=== PATIENT | male | born 1985 | race African-American/Black ===

== ENCOUNTER 2019-08-03 21:44 | Emergency (ER) | payer OTHER, SELFPAY ==
[2019-08-03 21:45] VITALS: BP 132/77; PULSE 90; RESP 16; TEMP 36.7; O2SAT 99
--- NOTE | 2019-08-03 21:56 | ED.DENTAL ---
HPI - Dental/Oral General Chief complaint: Dental/Oral Stated complaint: tooth Time Seen by Provider: 08/03/19 21:49 Source: patient History of Present Illness HPI Narrative: Pt c/o left lower tooth pain, started 1 week ago. Denies facial swelling. Denies throat swellingo or dysphagia. Denies fever. Related Data Allergies Allergy/AdvReac Type Severity Reaction Status Date / Time clindamycin Allergy Unknown Itching Verified 08/03/19 21:55 Review of Systems Review of Systems: All systems reviewed & are unremarkable except as noted in HPI and below PMFSH Social History Social History Gender identity (if verbalized by the patient): Male Exam Const: General: no acute distress and alert Orientation/consciousness: patient oriented x3 HENMT: Teeth and gingiva: abnormal tooth and associated gingiva (dental decay with gingival swelling left lower molar) Course Vital Signs Vital signs: Vital Signs Temperature 36.7 C 08/03/19 21:45 Pulse Rate 90 08/03/19 21:45 Respiratory Rate 16 08/03/19 21:45 Blood Pressure 132/77 08/03/19 21:45 Pulse Oximetry 99 08/03/19 21:45 Temperature 36.7 C 08/03/19 21:45 Pulse Rate 90 08/03/19 21:45 Respiratory Rate 16 08/03/19 21:45 Blood Pressure 132/77 08/03/19 21:45 Pulse Oximetry 99 08/03/19 21:45 Discharge Plan Discharge Clinical Impression: Dental caries, Toothache Patient Disposition: Home, Self-Care Condition: Stable Instructions: Antibiotic Form, Toothache (ED) Additional Instructions: FOLLOW UP WITH A DENTIST SOON POSSIBLE Prescriptions: New amoxicillin 875 mg tablet 875 mg PO Q12H Qty: 14 RF: 0 No Action penicillin V potassium 500 mg tablet 500 mg PO QID 10 Days Qty: 40 RF: 0 ibuprofen 800 mg tablet 800 mg PO TID PRN (Reason: pain) Qty: 30 RF: 0 Follow-up/Referrals: UNKNOWN,DOCTOR [Primary Care Provider] - Stand Alone Forms: Work/School Release IP Time of Disposition: 22:03
[2019-08-03] MEDS: KETOROLAC (*BKC) 60 MG/2 ML VIAL IM (21:58)
== END 2019-08-03 22:08 | disposition home or self-care (01) ==
PROVIDERS: Emergency Provider Emergency Medicine
DX: K02.9 Dental caries, unspecified (principal)
CPT/HCPCS: 96372; 99283; J1885

== ENCOUNTER 2019-09-06 00:32 | Emergency (ER) | payer OTHER, SELFPAY ==
[2019-09-06 00:36] VITALS: BP 141/100; PULSE 68; RESP 18; TEMP 36.6; O2SAT 100
--- NOTE | 2019-09-06 00:53 | ED.DENTAL ---
HPI - Dental/Oral General Chief complaint: Dental/Oral Stated complaint: dental pain Time Seen by Provider: 09/06/19 00:42 Source: RN notes reviewed History of Present Illness HPI Narrative: Patient presents emergency department from home for dental pain. Patient states symptoms began approximately 1 week ago. The pain is located in the right lower molar tooth. Pain is worse with chewing on the tooth. States he has a history of a cavity in that tooth had a dental appointment scheduled but was canceled. States he has been taking Tylenol and Motrin at home for pain with last dose of Motrin 1 hour ago he denies any fevers or chills ear pain nasal pain swelling of the cheek difficulty swallowing or any other symptoms Related Data Allergies Allergy/AdvReac Type Severity Reaction Status Date / Time clindamycin Allergy Unknown Itching Verified 09/06/19 00:45 Review of Systems Review of Systems: Narrative: Gen.: Denies fevers or chills HEENT: See HPI Neuro: Denies headache ss Skin: Denies rash Endo: Denies DM PMFSH Past Medical History Medical History (Updated 09/06/19 @ 00:55 by Edmundo Arce DO) Patient denies significant medical history Social History Social History (Updated 09/06/19 @ 00:54 by Edmundo Arce DO) Gender identity (if verbalized by the patient): Male Exam Narrative: Exam Narrative: APPEARANCE: No acute distress, nontoxic, resting in bed HEENT: Normocephalic, atraumatic, TMs clear bilaterally, nares patent, oral mucosa moist, airway patent, tender palpation in tooth #32 with cavity present mild erythema with no swelling of the gum no drainage no swelling of the overlying cheek Neck: Supple RESPIRATORY: No respiratory distress MUSCULOSKELETAl: Moves all extremities. NEURO: Awake and alert. Following commands, speech normal, no focal deficits SKIN:: Warm, dry. Normal Color PSYCHIATRIC: Normal affect/mood Course Course Emergency Course: Discussed with patient results of workup and diagnosis. Discussed need for follow-up with primary care, proper use of medication, and reasons to return to the emergency department. Patient understands and agrees to current treatment plan Vital Signs Vital signs: Vital Signs Temperature 97.8 F 09/06/19 00:36 Pulse Rate 68 09/06/19 00:36 Respiratory Rate 18 09/06/19 00:36 Blood Pressure 141/100 H 09/06/19 00:36 Pulse Oximetry 100 09/06/19 00:36 Temperature 97.8 F 09/06/19 00:36 Pulse Rate 68 09/06/19 00:36 Respiratory Rate 18 09/06/19 00:36 Blood Pressure 141/100 H 09/06/19 00:36 Pulse Oximetry 100 09/06/19 00:36 Discharge Plan Discharge Clinical Impression: Dental abscess, Dental caries Patient Disposition: Home, Self-Care Condition: Stable Instructions: Antibiotic Form, Dental Abscess (ED) Additional Instructions: Return for increasing pain fever or any other symptoms of concern Prescriptions: New penicillin V potassium 500 mg tablet 500 mg PO TID Qty: 30 RF: 0 ibuprofen [IBU] 600 mg tablet 600 mg PO Q6H PRN (Reason: pain) Qty: 20 RF: 0 Follow-up/Referrals: [facility] [place] [Outside] - 2 Days [facility] [Outside] - 2 Days 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
[2019-09-06] MEDS: PENICILLIN V POTASSIUM 250 MG TABLET 500 MG PO (00:59)
== END 2019-09-06 01:12 | disposition home or self-care (01) ==
PROVIDERS: Emergency Provider Emergency Medicine
DX: K04.7 Periapical abscess without sinus (principal); K02.9 Dental caries, unspecified
CPT/HCPCS: 99283; A9270

== ENCOUNTER 2022-01-28 16:25 | Emergency (ER) | payer OTHER, SELFPAY ==
[2022-01-28 16:35] VITALS: BP 131/80; PULSE 81; RESP 16; TEMP 36.2; O2SAT 99
--- NOTE | 2022-01-28 16:54 | ED.DENTAL ---
HPI - Dental/Oral General Chief complaint: Dental/Oral Stated complaint: tooth pain Time Seen by Provider: 01/28/22 16:54 Source: patient Mode of arrival: ambulatory History of Present Illness HPI Narrative: 36 y/o male presented for c/o right upper and lower dental pain for 3 days. Denies broken teeth, but states he has some cavities and has not followed with a dentist in years. He has an appointment with [facility] pending. Denies swelling to gums or any discharge. Denies nausea, vomiting, diarrhea, fever or chills. MD Complaint: tooth pain Related Data Allergies Allergy/AdvReac Type Severity Reaction Status Date / Time clindamycin Allergy Unknown Itching Verified 01/28/22 16:57 Review of Systems Review of Systems: CONSTITUTIONAL: Denies body aches, fever, chills ENT: Denies rhinorrhea, congestion, sore throat, or otalgia. Reports dental pain CARDIOVASCULAR: Denies chest pain, palpitations RESPIRATORY: Denies cough or dyspnea. SKIN: Denies rash, itching, or wounds. MUSCULOSKELETAL: Denies myalgia. NEUROLOGIC: Denies headache, numbness, tingling, or weakness. [facility] Past Medical History Medical History Patient denies significant medical history Social History Social History Gender identity (if verbalized by the patient): Male Comments At time of signature, I have reviewed and agree with nursing past medical, surgical, social and family history unless otherwise noted. Please see nursing chart for further information. There is no relevant family history pertinent to the presenting complaint Exam Narrative: GENERAL: Appears in pain; no acute distress. HEAD: Normocephalic, atraumatic. EYES: EOMI. No redness or drainage. Conjunctivae normal. ENT: Dental pain location of #2 and #31; Mild gum swelling around #31, with darkened discoloration at that tooth; no active drainage; Mucous membranes pink and moist. TMs normal bilaterally. Throat normal. Uvula midline. NECK: Normal AROM. No lymphadenopathy. CHEST: Clear to auscultation. HEART: Regular rate and rhythm. No murmur appreciated. SKIN: Warm, dry, no rash. Normal skin turgor. Course Course Emergency Course: Patient is aware of diagnosis, understands and agrees to treatment plan. Anticipatory guidance given. Patient agrees to follow-up as directed and is aware of reasons to seek care at the emergency department. Portions of this record may have been created with voice recognition software Level of Care: Express Care Visit Vital Signs Vital signs: Vital Signs Temperature 97.2 F L 01/28/22 16:35 Pulse Rate 81 01/28/22 16:35 Respiratory Rate 16 01/28/22 16:35 Blood Pressure 131/80 01/28/22 16:35 Pulse Oximetry 99 01/28/22 16:35 Oxygen Delivery Room Air 01/28/22 16:35 Temperature 97.2 F L 01/28/22 16:35 Pulse Rate 81 01/28/22 16:35 Respiratory Rate 16 01/28/22 16:35 Blood Pressure 131/80 01/28/22 16:35 Pulse Oximetry 99 01/28/22 16:35 Oxygen Delivery Room Air 01/28/22 16:35 MDM - Dental/Oral MDM Narrative Medical decision making narrative: Patients pain and complaint coupled with physical findings are consistent with dentalgia. There are no focal signs of space occupying lesions that are compromising to the airway;. No uvular deviation or soft palate edema. The floor of the mouth is soft with no signs of Tang's Angina. Patient is without trismus or drooling and able to swallow secretions. Patient is stable and appropriate for discharge home with dental follow up. Differential Diagnosis Differential diagnosis: Likely gingival abscess, dental caries, toothache, dental abscess, fracture of tooth and aphthous ulcer Discharge Plan Discharge Clinical Impression: Toothache Patient Disposition: Home, Self-Care Condition: Stable Instructions: Antibiotic Form, Toothache (ED)
== END 2022-01-28 17:10 | disposition home or self-care (01) ==
PROVIDERS: Emergency Provider Nurse Practitioner Family
DX: K08.89 Other specified disorders of teeth and supporting structures (principal)
CPT/HCPCS: 99213; G0463

== ENCOUNTER 2022-03-26 12:50 | Emergency (ER) | payer OTHER, SELFPAY ==
[2022-03-26 13:19] VITALS: BP 131/73; PULSE 84; RESP 20; TEMP 37; O2SAT 100
--- NOTE | 2022-03-26 13:31 | ED.DENTAL ---
HPI - Dental/Oral General Chief complaint: Dental/Oral Stated complaint: toothache Time Seen by Provider: 03/26/22 13:31 Source: patient Mode of arrival: ambulatory History of Present Illness HPI Narrative: 36-year-old male presented for complaint of right lower dental pain for 2 weeks. He has been taking Tylenol and ibuprofen without significant relief. Denies significant history of broken teeth or abscesses. He states that the school is backed up and cannot get him in. He endorses pain is causing him difficulty eating and sleeping. He currently denies nausea, vomiting, fevers or chills. MD Complaint: tooth pain Related Data Allergies Allergy/AdvReac Type Severity Reaction Status Date / Time clindamycin Allergy Unknown Itching Verified 03/26/22 13:15 Review of Systems Review of Systems: CONSTITUTIONAL: Denies body aches, fever, chills ENT: Denies rhinorrhea, congestion, sore throat, or otalgia. Reports dental pain CARDIOVASCULAR: Denies chest pain, palpitations RESPIRATORY: Denies cough or dyspnea. SKIN: Denies rash, itching, or wounds. MUSCULOSKELETAL: Denies myalgia. NEUROLOGIC: Denies headache, numbness, tingling, or weakness. [facility] Past Medical History Medical History Patient denies significant medical history Social History Social History Gender identity (if verbalized by the patient): Male Comments At time of signature, I have reviewed and agree with nursing past medical, surgical, social and family history unless otherwise noted. Please see nursing chart for further information. There is no relevant family history pertinent to the presenting complaint Exam Narrative: GENERAL: Appears in pain; no acute distress. HEAD: Normocephalic, atraumatic. EYES: EOMI. No redness or drainage. Conjunctivae normal. ENT: Dental pain location of #32, tooth is brown in color and appears angled medially with surrounding gym swelling and tenderness; Mucous membranes pink and moist. TMs normal bilaterally. Throat normal. Uvula midline. NECK: Normal AROM. No lymphadenopathy. CHEST: No respiratory distress. Clear to auscultation. HEART: Regular rate and rhythm. No murmur appreciated. SKIN: Warm, dry, no rash. Normal skin turgor. NEURO: No focal deficits. Alert and oriented x3. Gait steady. Course Course Emergency Course: Patient is aware of diagnosis, understands and agrees to treatment plan. Anticipatory guidance given. Patient agrees to follow-up as directed and is aware of reasons to seek care at the emergency department. Portions of this record may have been created with voice recognition software Level of Care: Express Care Visit Vital Signs Vital signs: Vital Signs Temperature 98.6 F 03/26/22 13:19 Pulse Rate 84 03/26/22 13:19 Respiratory Rate 20 03/26/22 13:19 Blood Pressure 131/73 03/26/22 13:19 Pulse Oximetry 100 03/26/22 13:19 Oxygen Delivery Room Air 03/26/22 13:19 Temperature 98.6 F 03/26/22 13:19 Pulse Rate 84 03/26/22 13:19 Respiratory Rate 20 03/26/22 13:19 Blood Pressure 131/73 03/26/22 13:19 Pulse Oximetry 100 03/26/22 13:19 Oxygen Delivery Room Air 03/26/22 13:19 MDM - Dental/Oral MDM Narrative Medical decision making narrative: Patients pain and complaint coupled with physical findings are consistent with dental abscess. There are no focal signs of space occupying lesions that are compromising to the airway; no dysphagia, odynophagia, dysphonia, or dyspnea. No uvular deviation or soft palate edema. Patient is non-toxic appearing. The floor of the mouth is soft with no signs of Tang's Angina; no induration below mandible, no neck pain. Patient is without trismus or drooling and able to swallow secretions. Patient is felt appropriate for discharge home with dental follow up. Differential Diagnosis Differential diagnosis: Lilly
== END 2022-03-26 13:45 | disposition home or self-care (01) ==
PROVIDERS: Emergency Provider Nurse Practitioner Family
DX: K04.7 Periapical abscess without sinus (principal)
CPT/HCPCS: 99213; G0463

== ENCOUNTER 2022-07-19 20:21 | Emergency (ER) | payer OTHER, SELFPAY ==
[2022-07-19 20:41] VITALS: BP 126/79; PULSE 62; RESP 14; TEMP 37; O2SAT 100
--- NOTE | 2022-07-19 20:43 | ED.DENTAL ---
HPI - Dental/Oral General Chief complaint: Dental/Oral Stated complaint: TEETH PAIN Time Seen by Provider: 07/19/22 20:43 Source: patient Mode of arrival: ambulatory Limitations: no limitations History of Present Illness HPI Narrative: Pt is a 37 yo male presenting to the emergency department for evaluation of right-sided dental pain. Patient states that he has had 2-week history of worsening right dental pain, aching in nature, so severe it is preventing him from sleeping. He denies any redness of the face or swelling. He reports mild jaw pain. He has been able to tolerate oral intake and denies any neck pain or shortness of breath. No fever or chills. Patient with history of dental caries, states that he has not seen a dentist in quite some time. Denies any dental trauma. He has been taking Tylenol without improvement in his symptoms. Related Data Allergies Allergy/AdvReac Type Severity Reaction Status Date / Time clindamycin Allergy Unknown Itching Verified 07/19/22 20:49 Review of Systems Review of Systems: CONSTITUTIONAL: Denies fever HEENT: Reports right molar pain CARDIOVASCULAR: Denies chest pain RESPIRATORY: Denies cough or dyspnea. GASTROINTESTINAL: Denies abdominal pain SKIN: Denies rash MUSCULOSKELETAL: Denies back pain NEUROLOGIC: Denies headache [facility] Past Medical History Medical History (Updated 07/19/22 @ 21:05 by Lilia Ko MD) Dental caries Dental caries Patient denies significant medical history Social History Social History Gender identity (if verbalized by the patient): Male Exam Narrative: GENERAL: Awake, alert, conversant HEAD: Normocephalic, atraumatic. EYES: PERRLA and EOMI. ENT: Nares clear, no rhinorrhea or epistaxis. Mucous membranes moist. Uvula is midline. No trismus. Extensive periodontal disease, obvious right posterior molar dental saud. Palate is not elevated. Tongue is not protruding. No neck edema. NECK: Supple. CHEST: No respiratory distress, breathing even and non labored HEART: Regular rate, sinus rhythm ABDOMEN:Non distended, non tender EXTREMITIES: Normal range of motion. No edema. SKIN: Warm, dry, no rash. NEURO:No focal deficits. Alert and oriented x3 Course Vital Signs Vital signs: Vital Signs Temperature 37.0 C 07/19/22 20:41 Pulse Rate 62 07/19/22 20:41 Respiratory Rate 14 07/19/22 20:41 Blood Pressure 126/79 07/19/22 20:41 Pulse Oximetry 100 07/19/22 20:41 Oxygen Delivery Room Air 07/19/22 20:41 Temperature 37.0 C 07/19/22 20:41 Pulse Rate 62 07/19/22 20:41 Respiratory Rate 14 07/19/22 20:41 Blood Pressure 126/79 07/19/22 20:41 Pulse Oximetry 100 07/19/22 20:41 Oxygen Delivery Room Air 07/19/22 20:41 MDM - Dental/Oral MDM Narrative Medical decision making narrative: Medical decision making narrative: -Presentation: Patient presenting for evaluation of right posterior molar pain. On exam, reassuring physical exam. No trismus. No facial edema or erythema. No evidence of facial cellulitis. No evidence of deep space abscess. No dyspnea. Patient is protecting his airway. No protrusion of the tongue or elevation of the palate that would be concerning for retropharyngeal abscess. Patient with extensive periodontal disease with dental carry in the right posterior molar. -Co-morbidities complicating care: None -Social determinants of health: Poor health literacy -External Chart Review: External EMR record reviewed -Hx from independent Sources: Significant other at bedside -Discussion of Management/Consultants: None -Independent interpretation of studies: None Dx tests considered but not ordered: Considered CT face but given no significant mandibular pain, edema, erythema, did not obtain -Procedures: -Interventions: Oral amoxicillin and Percocet -Shared decision making / Disposition: Patient's pain is consistent with
[2022-07-19] MEDS: oxyCODONE/ACETAMINOPHEN (*CRX) 5-325 MG TABLET 1 TABLET PO (21:09)
[2022-07-19] MEDS: AMOXICILLIN 500 MG CAPSULE PO (21:10)
== END 2022-07-19 21:25 | disposition home or self-care (01) ==
LOC: ANHED 21:10
PROVIDERS: Emergency Provider Emergency Medicine
DX: K02.9 Dental caries, unspecified (principal)
CPT/HCPCS: 99283; A9270

== ENCOUNTER 2022-12-05 09:09 | Emergency (ER) | payer OTHER, SELFPAY ==
[2022-12-05 09:19] VITALS: BP 144/76; PULSE 80; RESP 24; TEMP 37.2; O2SAT 100
--- NOTE | 2022-12-05 09:24 | ED.URI ---
HPI - URI/Sore Throat General Chief Complaint: Upper Respiratory Infection Stated Complaint: Body Aches,Headache Time Seen by Provider: 12/05/22 09:16 Source: patient and RN notes reviewed Mode of arrival: ambulatory Limitations: no limitations History of Present Illness HPI Narrative: 37-year-old male presented for complaint of body aches, fatigue, and dry throat, subjective fever and chills. Onset last night. Endorses sick contacts, unsure of their illness. He has not taken anything for symptoms. Denies shortness of breath, wheezing, nausea, vomiting. MD elicited complaint: cough Related Data Home Medications Medication Instructions Recorded Confirmed No Home Medications 12/05/22 12/05/22 Allergies Allergy/AdvReac Type Severity Reaction Status Date / Time clindamycin AdvReac Mild Itching Verified 12/05/22 09:12 Review of Systems Review of Systems: CONSTITUTIONAL: Endorses malaise, fever chills EYES: Denies visual changes, redness, or discharge ENT: Reports rhinorrhea, sore throat, denies congestion, sinus pain, otalgia CARDIOVASCULAR: Denies chest pain, palpitations, edema RESPIRATORY: Reports cough, post nasal drainage. Denies dyspnea GASTROINTESTINAL: Denies abdominal pain, nausea, vomiting, diarrhea SKIN: Denies rash or itching MUSCULOSKELETAL: Endorses myalgia PMFSH Past Medical History Medical History Dental caries Dental caries Patient denies significant medical history Social History Social History Gender identity (if verbalized by the patient): Male Exam Narrative: GENERAL: Ill-appearing, nontoxic no acute distress. HEAD: Normocephalic EYES: PERRLA, conjunctivae clear ENT: Mucous membranes moist. TM pearly cormier with dull light reflex bilaterally; no tragal tenderness. Oropharynx erythematous without lesions or exudate NECK: Supple. No lymphadenopathy CHEST: Clear to auscultation, breath sounds equal. HEART: Regular rate and rhythm. No murmur heard. SKIN: Warm, dry, no rash. NEURO: Alert and oriented x3. PSYCH: Normal mood and affect Course Course Emergency Course: Patient is aware of diagnosis, understands and agrees to treatment plan. Anticipatory guidance given. Patient agrees to follow-up as directed and is aware of reasons to seek care at the emergency department. Portions of this record may have been created with voice recognition software Level of Care: Express Care Visit Vital Signs Vital signs: Vital Signs Temperature 98.9 F 12/05/22 09:19 Pulse Rate 80 12/05/22 09:19 Respiratory Rate 24 H 12/05/22 09:19 Blood Pressure 144/76 H 12/05/22 09:19 Pulse Oximetry 100 12/05/22 09:19 Oxygen Delivery Room Air 12/05/22 09:19 Temperature 98.9 F 12/05/22 09:19 Pulse Rate 80 12/05/22 09:19 Respiratory Rate 24 H 12/05/22 09:19 Blood Pressure 144/76 H 12/05/22 09:19 Pulse Oximetry 100 12/05/22 09:19 Oxygen Delivery Room Air 12/05/22 09:19 reviewed MDM - URI/Sore Throat MDM Narrative Medical decision making narrative: Results of POS COVID, neg flu, strep test reviewed with patient. Discussed physical exam findings. Advised supportive measures and signs/symptoms to go to the ER. Pt is appropriate for outpt treatment and f/u. Differential Diagnosis Differential diagnosis: Likely upper respiratory infection, sinusitis and viral infection Discharge Plan Discharge Clinical Impression: COVID-19 Patient Disposition: Home, Self-Care Condition: Stable Instructions: COVID-19 (Coronavirus Disease 2019) (ED) Additional Instructions: Flu test was negative today. Rapid strep swab was negative today Your rapid COVID test was positive today. The following recommendations have been made by the CDC and local Health Departments, regarding COVID-19: -Those individuals with mild cases of COVID-19 can generally b
== END 2022-12-05 09:42 | disposition home or self-care (01) ==
PROVIDERS: Emergency Provider Nurse Practitioner Family
DX: U07.1 COVID-19 (principal)
CPT/HCPCS: 87081; 87426; 87804; 87880; 99213; C9803; G0463

== ENCOUNTER 2024-12-03 13:18 | Emergency (ER) | payer OTHER, SELFPAY ==
[2024-12-03 13:25] VITALS: BP 120/68; PULSE 71; RESP 18; TEMP 36.6; O2SAT 100
--- NOTE | 2024-12-03 13:30 | ED.DENTAL ---
HPI - Dental/Oral General Chief complaint: Dental/Oral Stated complaint: Tooth pain for past couple weeks Time Seen by Provider: 12/03/24 13:31 Source: patient, RN notes reviewed and old records reviewed Mode of arrival: ambulatory Limitations: no limitations History of Present Illness HPI Narrative: 39 year old male who presents to [facility] care with complaints of dental pain to the left lower gum area for he past 2 weeks. Patient reports that he has had extractions of teeth from area previous. Patient does have palpable pain to the left side of posterior jaw area and pain under left posterior jaw region. denies any difficulty with swallowing or with his breathing. Patient reports that he has been taking Tylenol and Ibuprofen for his pain.Patient has noted some areas of poor dentition no obvious signs of abscess noted some mild redness to gum area on left lower back gum with no acute swelling. Patient is daily smoker. Onset (ago): week(s) (2) Severity scale (1-10): 9 Treatment prior to arrival: oral analgesic (Tylenol and Ibuprofen) Related Data Allergies Allergy/AdvReac Type Severity Reaction Status Date / Time clindamycin AdvReac Mild Itching Verified 12/03/24 13:28 Review of Systems Review of Systems: CONSTITUTIONAL: Denies fever, chills, or sweats. ENT: Denies rhinorrhea, congestion, sore throat, or otalgia. Reports dental pain to left lower gum area posterior region with no teeth present to area, mild redness no acute swelling to area. CARDIOVASCULAR: Denies chest pain, palpitations, or edema. RESPIRATORY: Denies cough or dyspnea. SKIN: Denies rash or itching. MUSCULOSKELETAL: Denies myalgia. NEUROLOGIC: Denies headache All systems reviewed & are unremarkable except as noted in HPI and below PMFSH Past Medical History Medical History Dental caries Dental caries Patient denies significant medical history Social History Social History Gender identity (if verbalized by the patient): Male Comments At time of signature, agree with nursing past medical, surgical, social and family history. There is no relevant family history pertinent to the presenting complaint Exam Narrative: GENERAL: Well-appearing, well-nourished, and in some acute distress related to dental pain. HEAD: Normocephalic, atraumatic. EYES: PERRLA and EOMI. ENT: Nares clear, no rhinorrhea or epistaxis. Mucous membranes moist. Missing teeth, broken teeth, caries, obvious caries some redness of left lower posterior gum, positive for some tenderness of left posterior jaw, no trismus or any Tang angina NECK: Supple. no lymphadenopathy CHEST: Clear to auscultation. No respiratory distress. SAO2 100% on room air denies any difficulty with breathing or with swallowing HEART: Regular rate and rhythm. No murmur heard. Normal peripheral pulses. SKIN: Warm, dry, no rash. NEURO: No focal deficits. Alert and oriented x3. Course Course Emergency Course: Patient is aware of diagnosis, understands and agrees to treatment plan. Anticipatory guidance given. Patient agrees to follow-up as directed and is aware of reasons to seek care at the emergency department. Portions of this record may have been created with voice recognition software Level of Care: Express Care Visit Vital Signs Vital signs: Vital Signs Temperature 36.6 C 12/03/24 13:25 Pulse Rate 71 12/03/24 13:25 Respiratory Rate 18 12/03/24 13:25 Blood Pressure 120/68 12/03/24 13:25 Pulse Oximetry 100 12/03/24 13:25 Oxygen Delivery Room Air 12/03/24 13:25 Temperature 36.6 C 12/03/24 13:25 Pulse Rate 71 12/03/24 13:25 Respiratory Rate 18 12/03/24 13:25 Blood Pressure 120/68 12/03/24 13:25 Pulse Oximetry 100 12/03/24 13:25 Oxygen Delivery Room Air 12/03/24 13:25 Reviewed MDM - Dental/Oral MDM Narrative Medical decision making narrative: Patients pain and complaint coupled with physical findings are consistent with dentalgia. There are no focal signs of space occupying lesions that are compromising to the airway; no dysphagia, odynophagia, dysphonia, or dyspnea. No uvular deviation or soft palate edema. Patient is non-toxic appearing. The floor of the mouth is soft with no signs of Tang's Angina; no induration below mandible, no neck pain.? Patient is without trismus or drooling and able to swallow secretions.? Patient is felt appropriate for discharge home with dental follow up. Differential Diagnosis Differential diagnosis: Likely dental caries, toothache and other (dental disease) Medical Records Attestation: I reviewed the patient's medical records. Critical Care Time Critical Care Time Critical Care Time: No Discharge Plan Discharge Clinical Impression: Pain, dental Patient Disposition: Home Condition: Stable Instructions: Antibiotic Form, Toothache (ED) Additional Instructions: Avoid temperature extremes May apply heat or ice to the face Gentle brushing and flossing Antibiotic as directed Tylenol for lesser pain Use ibuprofen regularly Follow-up with the dentist as soon as possible--see the list provided,call [facility] where [facility] were [facility] previously Use Viscous Lidocaine up to 4 times daily to right lower gum area If any increased symptoms or any swelling to neck or any difficulty swallowing go to ED Patient Language: Indonesian Prescriptions: New amoxicillin-pot clavulanate 875-125 mg tablet 1 tablet PO Q12H Qty: 20 0RF lidocaine HCl [Lidocaine Viscous] 2 % solution 1 applic mucous membrane QID PRN (Reason: pain) Qty: 100 0RF Follow-up/Referrals: PHYSICIAN,ROLL HAULER [Primary Care Provider, Internal Medicine] Stand Alone Forms: Work/School Release IP Time of Disposition: 13:42 Quality Advance Coma Scale Eyes: Open Verbal: Oriented and Alert Motor: Follows Commands [place] Total Score: 15
== END 2024-12-03 13:51 | disposition home or self-care (01) ==
PROVIDERS: Emergency Provider Registered Nurse
DX: K08.89 Other specified disorders of teeth and supporting structures (principal)
CPT/HCPCS: 99213; G0463

== ENCOUNTER 2025-02-02 13:42 | Emergency (ER) | payer OTHER, SELFPAY ==
--- NOTE | 2025-02-02 13:43 | ED_ITS ---
HPI - Dental/Oral General Chief complaint: Dental/Oral Stated complaint: Dental Pain Time Seen by Provider: 02/02/25 13:43 Source: patient Mode of arrival: ambulatory Limitations: no limitations History of Present Illness HPI Narrative: Patient is a 39-year-old male who presents with left lower dental pain for 2 weeks. Patient was seen here 12/03 of this year for same complaint. 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 States he has been taking Tylenol and ibuprofen with no relief. Reports pain when he is chewing but denies any difficulty swelling were significant swelling. Patient is a daily marijuana smoker. Related Data Allergies Allergy/AdvReac Type Severity Reaction Status Date / Time clindamycin AdvReac Mild Itching Verified 02/02/25 13:50 Review of Systems 2 Review of Systems: All systems reviewed & are unremarkable except as noted in HPI and below Constitutional: Constitutional: Denies body ache(s), Denies fever(s), Denies headache(s), Denies malaise and Denies weakness Eyes: Eyes: Denies loss of vision ENT: Denies otalgia, Reports facial pain (jaw), Denies headache(s), Denies nasal discharge, Denies sinus pain and Denies sore throat Cardiovascular: Cardiovascular: Denies chest pain, Denies irregular heart rhythm and Denies dyspnea Respiratory: Respiratory: Denies dyspnea Gastrointestinal: Gastrointestinal: Denies abdominal pain, Denies melena, Denies hematochezia, Denies diarrhea, Denies nausea and Denies vomiting Musculoskeletal: Musculoskeletal: Denies back pain, Denies myalgias and Denies arthralgias Integumentary/Breasts: Skin/Breast: Denies pruritus and Denies rash Neurologic: Denies headache(s), Denies loss of vision and Denies weakness Psychiatric: Psychiatric: Reports no additional psychiatric complaints PMFSH Past Medical History Medical History Dental caries Dental caries Patient denies significant medical history Social History Social History Gender identity (if verbalized by the patient): Male Comments At time of signature, agree with nursing past medical, surgical, social and family history. There is no relevant family history pertinent to the presenting complaint. Exam 2 Const: General: cooperative, healthy appearing, comfortable, no acute distress and well nourished Nutritional Appearance: well nourished O rientation/consciousness: patient oriented x3 Limitations: no limitations HENMT: Head: normal to inspection, normocephalic and atraumatic Ears: h earing grossly normal bilaterally, external ears normal, TM's normal bilaterally and mastoids normal bilaterally Face/Nose/Sinus: Normal external nose present, normal facial exam and face symmetric Face and sinus: normal facial exam and face symmetric Mouth: Yes Normal oral and palatal mucosa present, Yes lip normal, Yes tongue normal, Yes Normal salivary glands and ducts present and Yes moist mucous membranes Teeth and gingiva: abnormal tooth and associated gingiva lower left third molar tender and with associated gingival edema Teeth image: 1. Teeth missing with moderate gingival swelling. May have small piece of tooth and center of swelling. No active drainage Other: The tooth in question is very carious and the gum is swollen and tender around it. There is no facial swelling, cervical or submandibular lymphadenopathy. The patient appears uncomfortable and in pain. Eyes: General: appearance normal, both eyes and all related structures A lignment and Position: alignment normal and position normal Periorbital: p eriorbital findings normal Eyelids: eyelids normal Pupils: Equal, round and reactive pupils present EOM: EOMs intact bilaterally Neck: Neck: normal visual inspection, full ROM, no lymphadenopathy and supple Chest: Chest palpation & inspection: normal inspection of the chest Resp: Effort & Inspection: normal respiratory effort and able to speak in complete sentences Auscultation: clear to auscultation bilaterally Cardio: Rate: regular rate Rhythm: regular rhythm Heart sounds: S1 normal heart sound present and S2 normal heart sound present GI: Inspection: normal to inspection Skin: General skin exam: normal color and no rashes or lesions noted Neuro: General: patient oriented x3 and moves all extremities Cranial nerves: Yes Equal, round and reactive pupils present Speech: normal speech Gait exam (Neuro): Normal gait present Extrem: General: normal to inspection, full ROM and no edema Psych: Appearance: grossly normal and well kempt Mental Status: mental status grossly normal Speech and movement: Normal speech and movement present Affect: normal affect Attitude: cooperative Thought process: Normal thought process present Course Course Emergency Course: Patient is aware of diagnosis, understands and agrees to treatment plan. Anticipatory guidance given. Patient agrees to follow-up as directed and is aware of reasons to seek care at the emergency department. Portions of this record may have been created with voice recognition software Level of Care: Express Care Visit Vital Signs Vital signs: Reviewed MDM - Dental/Oral MDM Narrative Medical decision making narrative: Patients pain and complaint coupled with physical findings are consistant with dentalgia. There are no focal signs of space occupying lesions that are compromising to the airway; no dysphagia, odynophagia, dysphonia, or dyspnea. No uvular deviation or soft palate edema. Patient is non-toxic appearing. The floor of the mouth is soft with no signs of Tang's Angina; no induration below mandible, no neck pain. Patient is without trismus or drooling and able to swallow secretions. Patient is felt appropriate for discharge home with dental follow up. Differential Diagnosis Differential diagnosis: Likely gingival abscess, dental caries, toothache, dental abscess and fracture of tooth Medical Records Attestation: I reviewed the patient's medical records. Discharge Plan Discharge Clinical Impression: Dental abscess Patient Disposition: Home Condition: Stable Instructions: Dental Abscess (ED) Additional Instructions: Take antibiotic until it's gone. Brushing teeth at least twice daily with gentle flossing. Avoid temperature extremes---when you eat. Salt gargle to rinse your mouth after every meal You may apply ice to the face to reduce pain/swelling. For pain, you may take: Tylenol 650-1000mg by mouth every 4-6 hours. Do not exceed 4000mg in 24 hours. Advil (Ibuprofen) 600 mg by mouth every 6 hours. Do not exceed 2400mg in 24 hours. Also, recommend regular dental check up one-two times a year to prevent tooth decay and other periodontal disease. Follow-up with the dentist as soon as possible--see the list provided Patient Language: Romansh Prescriptions: New amoxicillin-pot clavulanate 875-125 mg tablet 1 tablet PO Q12H 10 Days Qty: 20 0RF ibuprofen 800 mg tablet 800 mg PO TID Qty: 30 0RF Follow-up/Referrals: Mitchel Penn MD [Physician, Family Practice] - 3 Days Time of Disposition: 14:10
[2025-02-02 13:51] VITALS: BP 115/68; PULSE 71; RESP 18; TEMP 36.8; O2SAT 100
== END 2025-02-02 14:12 | disposition home or self-care (01) ==
PROVIDERS: Emergency Provider Nurse Practitioner Family
DX: K04.7 Periapical abscess without sinus (principal)
CPT/HCPCS: 99213; G0463